=== PATIENT | male | born 1965 | race African-American/Black ===

== ENCOUNTER → 2018-06-01 | Outpatient (CLI) | payer OTHER ==
[2016-10-10 10:53] VITALS: BP 135/81
[~2018-06-01] MED LIST: ASPI-630 PO; AZIT250T6 PO
--- NOTE | 2018-06-01 13:53 | RAD ---
EXAM: Lumbar spine, 3 views. HISTORY: Pain. COMPARISON: None. FINDINGS: Frontal, lateral and coned sacral views of the lumbar spine are obtained. 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 There is no listhesis. The vertebral bodies are normal in height. There is mild facet arthropathy at the lower lumbar levels. IMPRESSION: No acute osseous finding. Mild degenerative change at the lower lumbar levels. Electronically signed by: Carmelita Dela Cruz MD (06/01/2018 1:51 PM) [place] [id number]
== END | disposition home or self-care (01) ==
LOC: PMG 12:35
PROVIDERS: ATTEND Family Medicine
DX: M12.88 Other specific arthropathies, not elsewhere classified, other specified site (principal); K21.9 Gastro-esophageal reflux disease without esophagitis
CPT/HCPCS: 72100